=== PATIENT | female | born 1970 | race Caucasian/White ===

== ENCOUNTER 2016-07-30 19:36 | Observation (INO) | payer OTHER ==
[2016-07-30] MEDS ORDERED: IOPAMIDOL 370 (76%) 100 ML VIAL IV ONE (19:37)
[2016-07-30] MEDS ORDERED: SODIUM CHLORIDE 0.9% 1,000 ML ONE (19:57)
[2016-07-30 20:12] LABS: ABSOLUTE NEUTROPHIL COUNT 5.1 K/mm3 (1.8-7.7); BASO % 0.3 % (0.2-1.0); EOS % 0.4 % (0.9-2.9); HEMATOCRIT 40.3 % (37.0-47.0); HEMOGLOBIN 13.9 gm/l (12.0-16.0); IMM NEUT% 0.3 % (0-1); LYMPH # 1.2 (1.0-4.8); LYMPH % 18.3 % (15-45); MEAN CELL VOLUME 92.4 fl (81.0-99.0); MEAN CORPUSCULAR HEMOGLOBIN 31.9 pg (27.0-31.0); MEAN CORPUSCULAR HGB CONC 34.5 g/dl (33.0-37.0); MEAN PLATELET VOLUME 10.9 fl (7.4-10.4); MONO # 0.4 (0.0-0.8); MONO % 5.3 % (4-12); NEUT % 75.4 % (43-75); PLATELET COUNT 231 K/mm3 (130-400); RED CELL DISTRIBUTION WIDTH 12.4 % (11.5-14.5)
[2016-07-30 20:26] LABS: ALB/GLOB RATIO 1.5 (>1.0); ALBUMIN 4.8 gm/dL (3.5-5.7); ALT/SGPT 15 U/L (7-52); BLOOD UREA NITROGEN 13 mg/dL (7-25); BUN/CREATININE RATIO 14 (6-20); CALCIUM 9.9 mg/dL (8.6-10.3); GLOMERULAR FILTRATION RATE 68 mL/min (60-99); SALICYLATE < 5 mg/dl (0-30)
[2016-07-30 20:29] LABS: INR 0.99; PROTHROMBIN TIME 10.4 SECONDS (9.3-11.4)
[2016-07-30 20:35] LABS: ACETAMINOPHEN < 10 ug/ml
[2016-07-30 20:38] LABS: URINE APPEARANCE HAZY; URINE BILIRUBIN NEGATIVE (NEGATIVE); URINE BLOOD 3+ (NEGATIVE); URINE COLOR AMBER; URINE GLUCOSE (UA) NEGATIVE (NEGATIVE); URINE LEUKOCYTE ESTERASE TRACE (NEGATIVE); URINE NITRITE NEGATIVE (NEGATIVE); URINE PROTEIN 1+ (NEGATIVE); URINE UROBILINOGEN NORMAL (0-1 mg/dl)
[2016-07-30 20:47] LABS: URINE BACTERIA 2+; URINE MUCUS 2+
[2016-07-30 20:57] LABS: AMPHETAMINES/METHAMPHETAMINES POSITIVE (NEGATIVE); COCAINE NEGATIVE (NEGATIVE); MARIJUANA NEGATIVE (NEGATIVE); METHADONE NEGATIVE (NEGATIVE); OPIATES NEGATIVE (NEGATIVE); TRICYCLIC ANTIDEPRESSANTS NEGATIVE (NEGATIVE)
--- NOTE | 2016-07-30 21:16 | CT ---
Name: MILO ANDREWS Exam: CT head without contrast Comparison: None Clinical history: Drug overdose Technique: Helical CT was performed through the head. Angled axial reconstructions were obtained. Sagittal and coronal reconstructions were obtained as well. No contrast was given. An automated dose reduction technique was used to minimize patient radiation dose. Findings: There is no shift of the midline structures. Ventricles are of normal size and configuration. There is no mass, mass effect or hemorrhage. Cisterns are uneffaced. Posterior fossa is unremarkable. There is no fracture. Visualized paranasal sinuses and mastoid air cells are within normal limits. Impression: Negative unenhanced CT of the head Note: The above report was uploaded to [facility]'s electronic medical records system at 2112 hours.
--- NOTE | 2016-07-30 21:22 | CT ---
Name: MILO ANDREWS Exam: CT abdomen pelvis with contrast Comparison: None History: Overdose Procedure: Helical CT using multidetector technique was applied to the abdomen and pelvis during intravenous administration of 100 cc Isovue-370. No oral contrast was given per ordering physician. An automated dose reduction technique was used to minimize patient radiation dose. Findings: CT abdomen (contrast enhanced): Lung bases are clear. Heart is not enlarged. There is no pericardial effusion. Liver, gallbladder, pancreas, spleen, adrenal glands and left kidney are normal. There is a tiny right renal cyst. Aorta, IVC and portal vein are normal. There is air and fluid within the stomach. Liquid stool is noted within the colon. Small bowel and colon are not dilated. Normal appendix is retrocecal. There is no free air, free fluid or suspicious adenopathy. Regional skeleton is within normal limits. CT pelvis (contrast enhanced): Bladder is nearly empty. Uterus is to the right. Right ovary is within normal limits. The left ovary contains several cysts. Largest smooth appearing cyst is 2 cm. There are features compatible with a 1.7 cm involuting left ovary and cyst. Small bowel and colon are normal caliber. There is no free air, free fluid or suspicious adenopathy. Impression: 1. Liquid stool within the colon without bowel dilation or evidence for obstruction 2. Left ovary and cysts as described above 3. Normal appendix 4. No free air, free fluid or abscess 5. Tiny right renal cyst Note: The above report was uploaded to [facility]'s electronic medical records system at 2118 hours.
[2016-07-30] MEDS ORDERED: MENTHOL/CETYLPYRD 1 EACH LOZENGE PO PRN (22:29)
[2016-07-30] MEDS ORDERED: SODIUM CHLORIDE 0.9% 100 ML IV PRN (22:29)
[2016-07-30] MEDS ORDERED: CALCIUM CARBONATE 500 MG TAB.CHEW PO PRN (22:29)
[2016-07-30] MEDS ORDERED: BISACODYL 5 MG TABLET.EC PO PRN (22:29)
[2016-07-30] MEDS ORDERED: BLISTEX LIPSTICK 1 EACH TP PRN (22:29)
[2016-07-30] MEDS ORDERED: BISACODYL 10 MG SUP PR PRN (22:29)
[2016-07-30] MEDS ORDERED: MAGNESIUM HYDROXIDE 30 ML UDCUP PO PRN (22:29)
[2016-07-30] MEDS ORDERED: DIAZEPAM 2 MG TABLET PO PRN (22:40)
[2016-07-30] MEDS ORDERED: DIAZEPAM 5 MG TABLET PO ONE (22:40)
[2016-07-30 23:39] VITALS: BMI 30.4
[2016-07-31] MEDS: IBUPROFEN 200 MG TABLET PO PRN ×2 (03:12→10:31)
--- NOTE | 2016-07-31 05:23 | HP ---
MILO WEINER [id number] DATE OF ADMISSION: July 30, 2016 CHIEF COMPLAINT: Sertraline overdose. HISTORY OF PRESENT ILLNESS: The patient is a 46-year-old female who had been in her usual state of health until today. Emergency room notes indicate that she was confronted with her 's recent affair while he was away in [place] a month ago. She took 15 tablets of her 50 mg sertraline and then later developed shaking and nausea, abdominal discomfort and was brought here for evaluation. Patient does not have a prior history of suicidal attempt but does have a history of depression and anxiety and sees a person at [facility]. She is not known to take any other medications recently. PAST MEDICAL HISTORY: 1. Remarkable for depression. She had been on sertraline but reported to have weaned off this medicine about a month ago. 2. She has a history of pituitary tumor and takes some medicine for this but they are not clear what this is. PAST SURGICAL HISTORY: Remarkable for a section. ALLERGIES: SHE DENIES ANY ALLERGIES. MEDICATIONS: 1. She had been on sertraline 50 mg a day previously but stopped a month ago. 2. She takes some medicine for pituitary from [facility]. SOCIAL HISTORY: She lives in [place] in a house. She is and has four kids. She smokes between two and ten cigarettes a day. Denies alcohol use. Goes to [employer]. They have Chihuahuas. FAMILY HISTORY: Father is living and is healthy. Mom at 53 of diabetes complications. REVIEW OF SYSTEMS: Eyes, okay except for being a little dizzy. Ears are okay. Nose is okay, dry. Mouth is dry. Teeth feel kind of funny, like there is medicine on them. Neck is okay but it hurts some. Breathing is okay. Heart is okay. Stomach is upset. She has had some vomiting, no diarrhea. No urinary complaints. No breast discharge. Last period was July 06-2015. Legs have been okay. Skin has been okay. Arms have been okay. PHYSICAL EXAM: GENERAL: Non-toxic female, awake and alert, slightly tremulous. VITAL SIGNS: Pulse 83, blood pressure 140/83, 98% saturation on room air, respirations 21, temperature 98.9. HEAD: Head is normocephalic, atraumatic. EYES: Unremarkable. NOSE: Is normal. MOUTH: Is unremarkable. Dentition is good. NECK: Is supple, no jugular venous. LUNGS: Clear to auscultation bilaterally. HEART: Regular rate and rhythm without murmur. ABDOMEN: She reports some diffuse tenderness but bowel sounds are normal. No rebound, no guarding. No focal tenderness. GENITOURINARY: Exam is deferred. BREAST: Exam is deferred. EXTREMITIES: No clubbing, cyanosis or edema. Feet are in good condition. Hands are unremarkable. NEUROLOGIC: Cranial nerves are intact. She appears slightly uncomfortable and slightly anxious. Speech is clear. Mild tremor is noted. Emergency room evaluation has suggested some mild clonus in the lower extremities, two beats of inducible clonus at the ankle bilaterally. LABORATORY: White count 6.8, hemoglobin 13.9, platelets 231, MCV is 92.4, lactate 0.4, INR 0.99. Sodium 133, potassium 3.6, chloride 102, CO2 20, BUN 13, creatinine 0.9, glucose 137. Liver function tests are normal. HCG is negative. TSH 2.35. Urinalysis, 1+ ketones, specific gravity 1.030, 1+ protein, 1 to 3 red cells, 2 to 4 white cells, 2 to 4 epithelial cells. Urine drug screen positive for methamphetamine, acetaminophen less than 10, salicylates less than 5. IMAGIN. Brain CT, negative. 2. Abdomen and pelvis CT, liquid stool in colon, left ovary with cyst up to 2 cm, normal appendix, tiny right renal cyst. ASSESSMENT AND PLAN: 1. Intentional overdose of sertraline with some sertraline related symptoms. Will be monitoring heart rate, temperature and consider use of some benzodiazepines such as diazepam. We will monitor CPK, recheck CMP and CBC in the morning. Emergency room doctor requested a followup social work consult as they had evaluated her in the emergency room initially. 2. History of pituitary microadenoma versus other. We will not be giving any medications regarding this at this time. 3. Venous thrombosis prophylaxis. Patient felt to be observation status and low risk. 4. Positive drug screen for methamphetamine. It is unclear if sertraline would cause this. Appreciate [employer] help with clarifying this. cc: Milena Sunshine M.D.
[2016-07-31 06:10] LABS: HEMATOCRIT 34.8 % (37.0-47.0); HEMOGLOBIN 11.9 gm/l (12.0-16.0); MEAN CELL VOLUME 93.3 fl (81.0-99.0); MEAN CORPUSCULAR HEMOGLOBIN 31.9 pg (27.0-31.0); MEAN CORPUSCULAR HGB CONC 34.2 g/dl (33.0-37.0); RED CELL DISTRIBUTION WIDTH 12.7 % (11.5-14.5)
[2016-07-31 06:35] LABS: ALB/GLOB RATIO 1.3 (>1.0); ALBUMIN 3.8 gm/dL (3.5-5.7); CALCIUM 8.7 mg/dL (8.6-10.3)
--- NOTE | 2016-07-31 07:51 | RAD ---
Exam: Portable chest COMPARISON: CT abdomen and pelvis 07/30/2016 INDICATION: Intentional overdose. FINDINGS: A single PA view of the chest was obtained and demonstrates a normal cardiac silhouette. Lungs are well-inflated. There is no focal airspace disease or pleural effusion. Bones of the chest wall within normal limits. IMPRESSION: No acute pulmonary process.
[2016-07-31] MEDS ORDERED: FLU VACC 2016-17 (36MO-64Y)/PF 60 MCG/0.5 ML SYRINGE IM V ONE (09:00)
[2016-07-31] MEDS ORDERED: DOCUSATE SODIUM 100 MG CAPSULE PO SCH (09:00)
[2016-07-31 13:14] VITALS: BP 134/77
--- NOTE | 2016-07-31 19:53 | DS ---
MILO WEINER [id number] DATE OF ADMISSION: July 30, 2016 DATE OF DISCHARGE: July 31, 2016 DISCHARGE DIAGNOSES: Major depression with an attempted overdose with sertraline. OTHER DIAGNOSES: Include a pituitary prolactinoma. SUMMARY OF ADMISSION AND HOSPITAL COURSE: The patient is a 46-year-old female with a longstanding history of major depression as well as a pituitary prolactinoma complicated by poor compliance with her medication regimen who presented after taking fifteen 50 mg tablets of sertraline and complaints of shaking, nausea and abdominal discomfort. The episode occurred after she discovered her had had a recent affair and was an attempt at suicide. She was evaluated in the emergency department. Laboratory studies were unremarkable. test was negative. She was referred to the hospitalist service for observation on telemetry. She had no significant arrhythmias during her period of observation and was hemodynamically stable. She was felt to be medically stable for discharge on July 31, 2016. Prior to discharge she was evaluated by social sciences chair and it was felt to be an impulsive act and low risk for repeat suicide attempts. She was felt to be safe for discharge. PHYSICAL EXAM: VITAL SIGNS: Her discharge vital signs showed a temperature of 98.5, pulse 66, blood pressure is 134/77, respirations 16, oxygen saturation 97% on room air. Body mass index 30.4. Weight is 63.7 kilograms. GENERAL: This is a slightly obese female in no acute distress. HEENT: Is unremarkable. LUNGS: Are clear to auscultation bilaterally. CARDIOVASCULAR: Exam reveals a regular rate and rhythm without a murmur. ABDOMEN: Is soft, nontender, nondistended with positive bowel sounds. EXTREMITIES: Show no edema. NEUROLOGIC: Exam is nonfocal. DISPOSITION: Home. DISCHARGE CONDITION: Good. ALLERGIES: NO KNOWN DRUG ALLERGIES. CODE STATUS: FULL CODE. DISCHARGE MEDICATIONS: She is instructed to resume her home medications as before without change. We were not able to clarify her home medication list prior to discharge. FOLLOWUP: She will follow up with her primary care provider, Stefan Narayanan PA-C at [facility] on August 01, 2016 at 5:40 p.m. She will also follow up with her counselor, Meryl Camara on August 01, 2016 at 5:40. Both providers are with [facility]. Cc: Meryl Camara, PhD Stefan Narayanan PA-C
== END 2016-07-31 15:40 | disposition home or self-care (01) ==
LOC: ED 19:36 → MS 22:34
PROVIDERS: ADMIT Family Medicine; ATTEND Family Medicine
DX: T43.222A Poisoning by selective serotonin reuptake inhibitors, intentional self-harm, initial encounter (principal); Y92.019 Unspecified place in single-family (private) house as the place of occurrence of the external cause; F32.9 Major depressive disorder, single episode, unspecified; F17.210 Nicotine dependence, cigarettes, uncomplicated; N83.202 Unspecified ovarian cyst, left side; N28.1 Cyst of kidney, acquired; E66.9 Obesity, unspecified; Z68.30 Body mass index [BMI] 30.0-30.9, adult
CPT/HCPCS: 83605; 80307 ×2; 84703; 85027; 85025; 82550 ×2; 87086; 80305; 80053 ×2; 83735; 85610; 84443; 81001; 36415; 71010; 74177; 70450; 99285 ×2; 96360; 96361 ×3; 93005; A9270 ×4; J7030; Q9967; G0378 ×2